=== PATIENT | male | born 1990 ===

== ENCOUNTER 2017-07-28 20:07 | Emergency (ER) | payer OTHER ==
[2017-07-28 20:25] VITALS: TEMP 98.1
[2017-07-28] MEDS ORDERED: Morphine 4 mg/ml ISec IVP STA (21:35)
[2017-07-28 21:47] LABS: BASO # 0.02 K/mm3 (0.0-2.0); BASO % 0.3 % (0.0-3.0); EOS # 0.1 (0.0-0.7); EOS % 1.1 % (1.5-5.0); GRAN # 5.28 (1.4-6.5); GRAN % 66.1 % (50.0-68.0); HEMATOCRIT 43.9 % (42.0-52.0); LYMPH % 25.1 % (22.0-35.0); MEAN CELL VOLUME 91.8 fl (80.0-105.0); MEAN CORPUSCULAR HEMOGLOBIN 30.8 pg (25.0-35.0); MEAN CORPUSCULAR HGB CONC 33.5 g/dl (31.0-37.0); MEAN PLATELET VOLUME 9.9 fl (7.0-11.0); MONO # 0.6 (0.1-0.6); MONO % 7.4 % (1.0-6.0); RED CELL DISTRIBUTION WIDTH 12.8 % (11.5-14.5)
[2017-07-28] MEDS ORDERED: Morphine 2 mg/ml ISec IVP STA (21:52)
[2017-07-28 22:01] LABS: ALB/GLOB RATIO 1.3 (1.1-1.8); ALKALINE PHOSPHATASE 59 U/L (38-126); ALT/SGPT 30 U/L (7-56); AST/SGOT 27 U/L (17-59); BILIRUBIN,TOTAL 0.8 mg/dL (0.2-1.3); CALCIUM 9.1 mg/dL (8.4-10.5); CARBON DIOXIDE 26 mmol/L (21-33); CHLORIDE 105 mmol/L (98-107); GFR AFRICAN-AMERICAN > 60; GLUCOSE,RANDOM 91 mg/dL (70-110); MAGNESIUM 1.9 mg/dL (1.7-2.2); SODIUM 139 mmol/L (132-148); TOTAL PROTEIN 7.4 g/dL (5.8-8.3)
[2017-07-28 22:12] LABS: TROPONIN I < 0.01 ng/mL
[2017-07-28 22:13] LABS: BLOOD UREA NITROGEN 16 mg/dL (7-21)
--- NOTE | 2017-07-28 23:38 | ED PDOC ---
Arrival/HPI - General Chief Complaint: Chest Pain Time Seen by Provider: 07/28/17 21:22 Historian: Patient - History of Present Illness Narrative History of Present Illness (Text): 07/28/17 21:31 26 year old male, who denies any past medical history, with a family history of diabetes, presents to the Emergency department complaining of left sided chest pain that began yesterday. Patient reports it began when he was sitting at work when a sharp pain occurred. He states the pain worsens with deep breaths, when he bends over, and when moving side to side. The pain gradually increased and is associated with dyspnea. Patient reports he was seen by his PMD Dr. Castañeda and a chest x-ray was done. The results with him showed mild thinning apices more in the left than the right, No pneumothorax or pleural effusion as per report. Patient denies any fevers, cough, chills, shortness of breath, abdominal pain, nausea, vomiting, diarrhea, back pain, neck pain, urinary/bowel changes, headache, dizziness, recent travel, or any other complaint. PMD: Dr. Castañeda Time/Duration: Other (yesterday) Symptom Onset: Sudden Symptom Course: Unchanged, Worsening Activities at Onset: Light Context: Work Past Medical History - Provider Review Nursing Documentation Reviewed: Yes - Infectious Disease Hx of Infectious Diseases: None - Psychiatric Hx Substance Use: No Family/Social History - Physician Review Nursing Documentation Reviewed: Yes Family/Social History: Diabetes Smoking Status: Never Smoked Hx Alcohol Use: No Hx Substance Use: No Allergies/Home Meds Allergies/Adverse Reactions: Allergies Penicillins Allergy (Verified 07/28/17 20:27) URTICARIA Review of Systems - Physician Review All systems were reviewed & negative as marked: Yes - Review of Systems Constitutional: absent: Fevers, Other (Chills) Respiratory: absent: SOB, Cough Cardiovascular: Chest Pain, COLLINS Gastrointestinal: absent: Abdominal Pain, Diarrhea, Nausea, Vomiting Genitourinary Male: absent: Dysuria, Frequency, Hematuria Musculoskeletal: absent: Back Pain, Neck Pain Neurological: absent: Headache, Dizziness Physical Exam Vital Signs Reviewed: Yes Vital Signs Temp Pulse Resp BP Pulse Ox 07/29/17 00:05 56 L 18 107/66 97 07/28/17 23:35 55 L 16 127/57 L 97 07/28/17 22:35 60 18 130/72 95 07/28/17 21:35 70 20 129/31 L 99 07/28/17 21:05 59 L 20 133/66 99 07/28/17 20:35 60 18 141/66 99 07/28/17 20:21 98.1 F 59 L 16 161/80 H 100 Temperature: Afebrile Blood Pressure: Hypertensive Pulse: Bradycardic Respiratory Rate: Normal Appearance: Positive for: Well-Appearing, Non-Toxic, Comfortable Pain Distress: None Mental Status: Positive for: Alert and Oriented X 3 - Systems Exam Head: Present: Atraumatic, Normocephalic Pupils: Present: PERRL Extroacular Muscles: Present: EOMI Conjunctiva: Present: Normal Mouth: Present: Moist Mucous Membranes Neck: Present: Normal Range of Motion Respiratory/Chest: Present: Clear to Auscultation, Good Air Exchange. No: Respiratory Distress, Accessory Muscle Use Cardiovascular: Present: Regular Rate and Rhythm, Normal S1, S2. No: Murmurs Abdomen: Present: Normal Bowel Sounds. No: Tenderness, Distention, Peritoneal Signs Back: Present: Normal Inspection Upper Extremity: Present: Normal Inspection. No: Cyanosis, Edema Lower Extremity: Present: Normal Inspection. No: Edema Neurological: Present: GCS=15, CN II-XII Intact, Speech Normal Skin: Present: Warm, Dry, Normal Color. No: Rashes Psychiatric: Present: Alert, Oriented x 3, Normal Insight, Normal Concentration Medical Decision Making ED Course and Treatment: 07/28/17 21:31 Impression: 26 year old male presents complaining of left sided chest pain that began yesterday. Plan: -- EKG -- Labs -- CXR Two Views -- Morphine -- Zofran Inj -- Reassess and disposition Progress Notes: EKG : NSR at 61 bpm, (-) acute ST changes, as read by ROJAS. CXR : NAD, as read by ROJAS Labs reviewed : Troponin negative, d-dimer negative. On reevaluation, patient is laying in bed comfortably in no acute distress, reports significant improvement of pain. Reports no shortness of breath or chest pain at this time. Diagnostic tests discussed with the patient in great detail. Patient advised to follow up with primary care physician in 1-2 days without fail. Advised to take medication as prescribed. Return to the emergency room at any time for any new or worsening symptoms. Patient states he fully agrees with and understands discharge instructions. States that he agrees with the plan and disposition. Verbalized and repeated discharge instructions and plan. I have given the patient opportunity to ask any additional questions. - Lab Interpretations Lab Results: 07/28/17 20:30 07/28/17 20:30 Lab Results 07/28/17 23:11: D-Dimer, Quantitative 150 07/28/17 20:30: Sodium 139, Potassium 4.0, Chloride 105, Carbon Dioxide 26, Anion Gap 12, BUN 16, Creatinine 0.9, Est GFR ( Amer) > 60, Est GFR (Non- Af Amer) > 60, Random Glucose 91, Calcium 9.1, Magnesium 1.9, Total Bilirubin 0.8, AST 27, ALT 30, Alkaline Phosphatase 59, Lactate Dehydrogenase 410, Total Creatine Kinase 79, Troponin I < 0.01, Total Protein 7.4, Albumin 4.2, Globulin 3.2, Albumin/Globulin Ratio 1.3 07/28/17 20:30: WBC 8.0, RBC 4.78, Hgb 14.7, Hct 43.9, MCV 91.8, MCH 30.8, MCHC 33.5, RDW 12.8, Plt Count 263, MPV 9.9, Gran % 66.1, Lymph % (Auto) 25.1, Terrell % (Auto) 7.4 H, Eos % (Auto) 1.1 L, Baso % (Auto) 0.3, Gran # 5.28, Lymph # 2.0 , Terrell # 0.6, Eos # 0.1, Baso # 0.02 I have reviewed the lab results: Yes - RAD Interpretation Narrative RAD Interpretations (Text): 07/29/17 00:32 CXR : FINDINGS: The cardiomediastinal silhouette is unremarkable. The lungs are clear. No subdiaphragmatic free air or pneumothorax. The trachea is midline. IMPRESSION: No focal infiltrate or effusion. Dictated and Authenticated by: Ayanna Ray MD 07/28/2017 11:59 PM Eastern Time ([place] & [place]) Radiology Orders: 07/28/17 21:31 CHEST TWO VIEWS (PA/LAT) [RAD] Stat - EKG Interpretation Interpreted by ED Physician: Yes Type: 12 lead EKG - Medication Orders Current Medication Orders: Discontinued Medications Morphine Sulfate (Morphine) 4 mg IVP STAT STA Stop: 07/28/17 21:53 Last Admin: 07/28/17 22:04 Dose: 4 mg MAR Pain Assessment Document 07/28/17 22:04 (Rec: 07/28/17 22:04 [id number] Pain Reassessment Is this a pain reassessment? Yes Sleep Is patient sleeping during reassessment? No Presence of Pain Presence of Pain Yes IVP Administration Document 07/28/17 22:04 YP (Rec: 07/28/17 22:04 [id number] Charges for Administration # of IVP Administrations 1 Ondansetron HCl (Zofran Inj) 4 mg IVP STAT STA Stop: 07/28/17 21:36 Last Admin: 07/28/17 22:04 Dose: 4 mg IVP Administration Document 07/28/17 22:04 (Rec: 07/28/17 22:04 [id number] Charges for Administration # of IVP Administrations 1 - PA / STAFF ANESTHETIST / Resident Statement MD/DO has reviewed & agrees with the documentation as recorded. - Scribe Statement The provider has reviewed the documentation as recorded by the Hannah Javed Provider Scribe Attestation: All medical record entries made by the Hannah were at my direction and personally dictated by me. I have reviewed the chart and agree that the record accurately reflects my personal performance of the history, physical exam, medical decision making, and the department course for this patient. I have also personally directed, reviewed, and agree with the discharge instructions and disposition. Disposition/Present on Arrival - Present on Arrival Any Indicators Present on Arrival: No History of DVT/PE: No History of Uncontrolled Diabetes: No Urinary Catheter: No History of Decub. Ulcer: No History Surgical Site Infection Following: None - Disposition Have Diagnosis and Disposition been Completed?: Yes Diagnosis: Chest pain Disposition: HOME/ ROUTINE Disposition Time: 00:33 Patient Plan: Discharge Condition: STABLE Discharge Instructions (ExitCare): Chest Pain (ED), Gastroesophageal Reflux Disease (ED) Print Language: LIBERIAN Additional Instructions: Thank you for letting us take care of you today. You were treated for chest pain. The emergency medical care you received today was directed at your acute symptoms. If you were prescribed any medication, please fill it and take as directed. It may take several days for your symptoms to resolve. Return to the Emergency Department if your symptoms worsen, do not improve, or if you have any other problems. Please contact your doctor in 2 days for re-evaluation and follow up. Bring any paperwork you were given at discharge with you along with any medications you are taking to your follow up visit. Our treatment cannot replace ongoing medical care by a primary care provider (PCP) outside of the emergency department. Thank you for allowing the [email or web address] team to be part of your care today. Prescriptions: Naproxen 500 mg PO BID #30 tab Referrals: Trey Castañeda MD [Primary Care Provider] - Follow up with primary Forms: [employer] (Czech)
--- NOTE | 2017-07-28 23:59 | RAD ---
EXAM: XR Chest, 2 Views CLINICAL HISTORY: 26 years old, male; Abnormal findings; Other: R/O pneumothorax; Additional info: Cp, R/O pneumothorax TECHNIQUE: Frontal and lateral views of the chest. COMPARISON: No relevant prior studies available. FINDINGS: The cardiomediastinal silhouette is unremarkable. The lungs are clear. No subdiaphragmatic free air or pneumothorax. The trachea is midline. IMPRESSION: No focal infiltrate or effusion.
[2017-07-29 00:01] VITALS: O2SAT 97
[2017-07-29 00:40] VITALS: BP 107/66; PULSE 56; RESP 18
--- NOTE | 2017-07-29 22:02 | CARD ---
APPROVED REPORT EKG Measurement Heart [id number] <Conclusion> Sinus rhythm with premature atrial complexes Minimal voltage criteria for LVH, may be normal variant Borderline ECG
== END 2017-07-29 00:40 | disposition home or self-care (01) ==
LOC: ED 20:07
DX: R07.9 Chest pain, unspecified (principal)
CPT/HCPCS: 71020; 80053; 82550; 83615; 83735; 84484; 85025; 85378; 93005; 96374; 96375; 99285; J2270; J2405